=== PATIENT | female | born 1990 | race Caucasian/White ===

== ENCOUNTER → 2016-10-06 | Outpatient (REF) | payer OTHER ==
[~2016-10-06] MED LIST: BACT800T5 PO; METR500T10; VENL75CA47
== END ==
LOC: M SFHCLERA 11:25
PROVIDERS: ATTEND Nurse Practitioner Family
DX: R30.0 Dysuria (principal)

== ENCOUNTER 2016-10-07 14:39 | Emergency (ER) | payer OTHER ==
[~2016-10-07] VITALS: Ht 162.6 cm; Wt 65.9 kg
[2016-10-07] MEDS ORDERED: VENL75CA47 (14:55)
[2016-10-07] MEDS ORDERED: METR500T10 (14:55)
[2016-10-07 16:19] VITALS: BP 117/71
[2016-10-07] MEDS ORDERED: BACT800T5 PO (16:26)
--- NOTE | 2016-10-07 17:14 | REP ---
PELVIC ULTRASOUND: Real-time sonographic evaluation of the pelvis is performed utilizing transabdominal and endovaginal technique. The bladder measures 8.6 x 5.6 x 9.4 cm. The uterus measures 7.2 x 4.1 x 5.5 cm. Endometrial thickness is 2 mm. There is no endometrial fluid collection. The right ovary measures 2.6 x 1.8 x 2.4 cm and left ovary 3.0 x 2.4 x 3.6 cm. A dominant follicle in the right ovary measures 1.8 x 1.3 x 1.1 cm. A small cyst in the left ovary measures 2.6 x 1.8 x 2.5 cm. There is no free fluid. There is no torsion with blood flow seen in each shoulder with duplex Doppler evaluation, RI right ovary 0.67 and left ovary 0.44. IMPRESSION: Endometrial thickness 2 mm. The uterus is retroverted. Dominant follicle right ovary 1.8 cm in maximum diameter. Left ovary demonstrates a cyst 2.6 cm in diameter. No free fluid or torsion. Signed by Alden Restrepo MD 10/08/2016 07:41 P
== END 2016-10-07 16:38 | disposition home or self-care (01) ==
LOC: M ED 15:20
DX: N93.8 Other specified abnormal uterine and vaginal bleeding (principal); N83.292 Other ovarian cyst, left side; Z79.899 Other long term (current) drug therapy

== ENCOUNTER 2017-01-24 12:31 | Emergency (ER) | payer OTHER ==
[~2017-01-24] VITALS: Ht 162.6 cm; Wt 65.9 kg
[~2017-01-24 12:31] MED LIST changes: +METR1TAB66; -METR500T10
[2017-01-24] MEDS ORDERED: prenatal vitamins PO (12:42)
[2017-01-24] MEDS ORDERED: NS 1,000 ML IV ONE (13:00)
[2017-01-24] MEDS ORDERED: METOCLOPRAMIDE INJ 10MG/2ML VIAL (J2765) IV ONE (13:00)
[2017-01-24 13:47] LABS: BASO % 0.3 % (0.0-1.0); EOS # 0.1 10^3/uL (0.0-0.50); EOS % 2.1 % (0.0-3.0); IMMATURE GRANULOCYTE % 0.2 % (0-0); LYMPH # 1.6 10^3/uL (1.5-6.5); LYMPH % 27.9 % (24.0-44.0); MEAN CORPUSCULAR HEMOGLOBIN 30.4 pg (27.0-33.0); MEAN CORPUSCULAR HGB CONC 33.3 g/dl (32.0-36.5); MEAN CORPUSCULAR VOLUME 91.3 fl (80.0-96.0); MONO # 0.5 10^3/uL (0.0-0.8); MONO % 9.2 % (0.0-5.0); NEUTROPHILS # 3.5 10^3/uL (1.8-7.7); NEUTROPHILS % 60.3 % (36.0-66.0); PLATELET COUNT, AUTOMATED 135 10^3/uL (150-450); RED CELL DISTRIBUTION WIDTH 11.5 % (11.5-14.5); WHITE BLOOD COUNT 5.8 10^3/uL (4.0-10.0)
[2017-01-24 14:25] LABS: ANION GAP 11 MEQ/L (8-16); BLOOD UREA NITROGEN 8 MG/DL (7-18); CALCIUM LEVEL 8.4 MG/DL (8.5-10.1); CARBON DIOXIDE LEVEL 24 MEQ/L (21-32); CHLORIDE LEVEL 104 MEQ/L (98-107); CREATININE FOR GFR 0.69 MG/DL (0.55-1.02); GLOMERULAR FILTRATION RATE > 60.0 (>60); GLUCOSE, FASTING 78 MG/DL (70-105); HCG, SERUM QUANTITATIVE 56037 MIU/ML; POTASSIUM SERUM 3.1 MEQ/L (3.5-5.1); SODIUM LEVEL 139 MEQ/L (136-145)
[2017-01-24] MEDS ORDERED: REGL10TA6 PO (14:55)
[2017-01-24 15:08] VITALS: BP 121/72
--- NOTE | 2017-01-25 07:46 | REP ---
FIRST TRIMESTER ULTRASOUND: HISTORY: Right lower quadrant pain. A single intrauterine is present. [place] rump length is 7 mm corresponding to a gestational age of 6 weeks 4 days. heart rate is 132 beats per minute. There is no subchorionic hemorrhage. The ovaries are normal in appearance. There is no fluid in the cul-de-sac. IMPRESSION: A single intrauterine is present with a gestational age by ultrasound of 6 weeks 4 days. A repeat examination in 19-20 weeks is recommended for further evaluation. Signed by Edy Francis MD 01/25/2017 08:20 A
== END 2017-01-24 15:09 | disposition home or self-care (01) ==
LOC: M ED 12:31
DX: Z32.01 Encounter for pregnancy test, result positive (principal); R11.0 Nausea; Z3A.01 Less than 8 weeks gestation of pregnancy; Z79.899 Other long term (current) drug therapy
CPT/HCPCS: 76801; 76817; 80048; 81001; 84702; 85025; 86901; 93976; 96361; 96374; 99283; J2765

== ENCOUNTER 2017-07-04 15:04 | Outpatient (CLI) | payer OTHER ==
[2017-07-04] MEDS ORDERED: LACTATED RINGER'S 1000 ML IV (15:45)
[2017-07-04] MEDS: LR 1,000 ML IV (15:54)
[2017-07-04] MEDS ORDERED: LR 1,000 ML IV (16:45)
== END 2017-07-04 17:18 | disposition home or self-care (01) ==
LOC: M LDO 15:04
DX: O26.893 Other specified pregnancy related conditions, third trimester (principal); Z3A.29 29 weeks gestation of pregnancy; O62.0 Primary inadequate contractions; O23.43 Unspecified infection of urinary tract in pregnancy, third trimester; M54.5 Low back pain
CPT/HCPCS: 59025

== ENCOUNTER 2017-07-28 20:07 | Outpatient (CLI) | payer OTHER | END 2017-07-28 21:15 | disposition home or self-care (01) | LOC: M LDO 20:07 | DX: O26.893 Other specified pregnancy related conditions, third trimester (principal); Z3A.33 33 weeks gestation of pregnancy | CPT/HCPCS: 59025 ==

== ENCOUNTER 2017-09-22 07:40 | Inpatient (IN) | payer OTHER ==
[2017-09-22] MEDS: LACTATED RINGER'S 1000 ML IV (10:52)
[2017-09-22 11:07] LABS: HEMATOCRIT 34.7 % (42.0-52.0); HEMOGLOBIN 11.6 g/dl (13.5-17.5); MEAN CORPUSCULAR HEMOGLOBIN 29.1 pg (27.0-33.0); MEAN CORPUSCULAR HGB CONC 33.4 g/dl (32.0-36.5); PLATELET COUNT, AUTOMATED 139 10^3/uL (150-450); RED BLOOD COUNT 3.99 10^6/uL (4.30-6.10); WHITE BLOOD COUNT 11.8 10^3/uL (4.0-10.0)
[2017-09-22] MEDS ORDERED: FENTANYL 2MCG/ML ROPIVACAINE 0.2% IN 0.9% NACL 200ML IVBAG As Ordered (11:08)
[2017-09-22] MEDS: LR 1,000 ML IV ×2 (12:09→20:20)
[2017-09-22] MEDS ORDERED: LACTATED RINGER'S 1000 ML IV (13:15)
[2017-09-22] MEDS ORDERED: diphenhydrAMINE INJ 50MG/ML VIAL (J1200) IV (13:15)
[2017-09-22] MEDS ORDERED: ePHEDrine SULFATE 25 MG/5 ML(5MG/ML) SYRINGE IV (13:15)
[2017-09-22] MEDS ORDERED: FENTANYL/ROPIVACAINE/NACL BAG 200 ML EPIDURAL (13:15)
[2017-09-22] MEDS ORDERED: NALOXONE INJ 0.4 MG/1 ML VIAL (J2310) IV ×3 (13:15→17:48)
[2017-09-22] MEDS ORDERED: ONDANSETRON 4MG/2ML VIAL (J2405) IV ×2 (13:15→17:48)
[2017-09-22] MEDS ORDERED: EPIDURAL COMMENT XX (13:15)
[2017-09-22] MEDS ORDERED: EPIDURAL/PCA KEYS XX (13:15)
[2017-09-22] MEDS ORDERED: REFRIGERATOR IV KEYS XX (13:15)
[2017-09-22] MEDS ORDERED: METOCLOPRAMIDE INJ 10MG/2ML VIAL (J2765) IV (17:48)
[2017-09-22] MEDS ORDERED: NALBUPHINE HCL 10 MG/ML AMP (J2300) IV (17:48)
[2017-09-22] MEDS: OXYTOCIN DRIP 30 UNITS in APPROPRIATE DILUENT 1 EA IV (18:10)
[2017-09-22] MEDS: ACETAMINOPHEN 325 MG TAB PO (19:51)
[2017-09-23] MEDS ORDERED: MEASLES,MUMPS,RUBELLA VACCINE INJ (MMR-II) (90707) SC (00:30)
[2017-09-23] MEDS ORDERED: DIBUCAINE 1% OINTMENT 30GM TOP (00:30)
[2017-09-23] MEDS ORDERED: DOCUSATE SODIUM 100 MG CAP PO (00:30)
[2017-09-23] MEDS ORDERED: ACETAMINOPHEN 500 MG TAB PO (00:30)
[2017-09-23] MEDS ORDERED: RHOGAM 300 MCG (1500 IU) INJ (J2790) IM (00:30)
[2017-09-23] MEDS: METHYLERGONOVINE MALEATE 0.2 MG/ML VIAL (J2210) IM (01:02)
[2017-09-23] MEDS: miSOPROStol 200 MCG TAB (S0191) PR (01:02)
[2017-09-23] MEDS: AMPICILLIN SOD/SULBACTAM SOD 3 GM in D5W MINI-BAG PLUS 100 ML IV (01:23)
[2017-09-23] MEDS: IBUPROFEN 800 MG TAB PO ×2 (01:24→23:37)
[2017-09-23] MEDS: OXYTOCIN DRIP 30 UNITS in APPROPRIATE DILUENT 1 EA IV (04:37)
[2017-09-23] MEDS: PRENATAL VITAMINS CHEWABLE TABLET PO (09:45)
[2017-09-24] MEDS: PRENATAL VITAMINS CHEWABLE TABLET PO (09:00)
== END 2017-09-24 18:24 | disposition home or self-care (01) | DRG 775 ==
LOC: M LDO 07:40 → M OBS 09-23 03:21 → M LDI 09:09
PROVIDERS: Obstetrics & Gynecology
PROC: 3E0134Z Introduction of Serum, Toxoid and Vaccine into Subcutaneous Tissue, Percutaneous Approach (ICD-10-PCS; principal; 2017-09-22)
PROC: 0HQ9XZZ Repair Perineum Skin, External Approach (ICD-10-PCS; 2017-09-22)
DX: O48.0 Post-term pregnancy (principal); Z37.0 Single live birth; Z3A.41 41 weeks gestation of pregnancy; F41.9 Anxiety disorder, unspecified; O99.344 Other mental disorders complicating childbirth; O70.0 First degree perineal laceration during delivery; O77.0 Labor and delivery complicated by meconium in amniotic fluid

== ENCOUNTER → 2018-03-04 | Outpatient (CLI) | payer OTHER | LOC: M RAD 10:21 | DX: O90.5 Postpartum thyroiditis (principal) | CPT/HCPCS: 78012 ==

== ENCOUNTER → 2018-03-26 | Outpatient (REF) | payer OTHER | LOC: M SFHCLERA 14:18 | DX: N89.8 Other specified noninflammatory disorders of vagina (principal) | CPT/HCPCS: 87186 ==

== ENCOUNTER → 2018-08-07 | Outpatient (REF) | payer OTHER ==
[~2018-08-07] MED LIST changes: +BUSP5TA PO; +COLA100C5 PO; +DIBU10OI TOP; +MAPA500T2 PO; +METR-265; -METR1TAB66; +MOTR200T44 PO; +REGL10TA6 PO; +prenatal vitamins PO
== END ==
LOC: M SFHCLERA 17:29
PROVIDERS: ATTEND Nurse Practitioner Family
DX: N89.8 Other specified noninflammatory disorders of vagina (principal)
CPT/HCPCS: 81002; 81025; 87086; G0463

== ENCOUNTER → 2019-05-06 | Outpatient (REF) | payer OTHER | LOC: M SFHCLERA 14:19 | PROVIDERS: ATTEND Physician Assistant | DX: N89.8 Other specified noninflammatory disorders of vagina (principal) | CPT/HCPCS: 81002; 81025; 87070; 87077; 87186; G0463 ==